=== PATIENT | female | born 1995 | race Caucasian/White ===

== ENCOUNTER → 2021-08-15 | Outpatient (CLI) | payer MEDICAID, SELFPAY ==
[2021-08-15 18:37] LABS: Amphetamine Urine VISTA NEGATIVE (<1000 ng/mL); Barbiturate Urine VISTA NEGATIVE (< 200 ng/mL); Benzodiazepine Urine VISTA NEGATIVE (< 200 ng/mL); Cocaine Urine VISTA NEGATIVE (< 300 ng/mL); Ecstacy Urine VISTA NEGATIVE (< 500 ng/mL); Methadone Urine VISTA NEGATIVE (< 300 ng/mL); PCP Urine VISTA NEGATIVE (< 25 ng/mL); THC Urine VISTA NEGATIVE (< 50 ng/mL); Vista UDS pH Range 6
[2021-08-19 09:19] LABS: Chlamydia By Nucleic Acid AMP Negative (Negative)
[2021-08-19 16:52] LABS: Gonococcus By Nucleic Acid AMP Negative (Negative)
[2021-08-21 18:27] LABS: HPV Reflexed? NOT INDICATED
== END | disposition home or self-care (01) ==
PROVIDERS: Referring Provider Obstetrics & Gynecology; Visit Provider Obstetrics & Gynecology
DX: O09.90 Supervision of high risk pregnancy, unspecified, unspecified trimester (principal); Z3A.00 Weeks of gestation of pregnancy not specified; Z12.4 Encounter for screening for malignant neoplasm of cervix
CPT/HCPCS: 80307; 87086; 87088; 87491; 87591; 88175; G0145

== ENCOUNTER → 2021-09-11 | Outpatient (CLI) | payer MEDICAID, SELFPAY ==
[2021-09-11 10:40] LABS: Absolute Lymphocyte Count 1.41 X10^3/uL (0.83-4.51); Absolute Neutrophil Count 7.8 X10^3/uL (2.0-7.7); Basophil# 0.04 X10^3/uL; Basophil% 0.4 % (0-1); Eosinophil# 0.08 X10^3/uL; Eosinophils% 0.8 % (0-5); Hematocrit 38.5 % (37-47); Hemoglobin 13.1 g/dL (12.0-15.0); Lymphocyte # 1.41 X10^3/ul (0.83-4.51); Lymphocyte % 13.6 % (19-41); Mean Corpuscular Hgb 28.4 pg (27.0-32.0); Mean Corpuscular Volume 83.5 fL (81-99); Mean Platelet Vol. 9.1 fl (6.2-12.0); Monocyte# 0.96 X10^3/uL; Monocyte% 9.3 % (0-10); NRBC Flagged by Analyzer 0 % (0-5); Neutrophil # 7.81 X10^3/uL (2.7-7.7); Neutrophil % 75.3 % (47-70); Platelet Count 266 K/mm3 (150-450); RBC Distribution Width CV 13.9 % (11.6-14.6); RBC Distribution Width SD 42.4 fl (35.1-43.9); Red Blood Count 4.61 M/mm3 (4.2-5.4); White Blood Count 10.4 K/mm3 (4.4-11.0)
[2021-09-11 11:33] LABS: NATERA MAILED SPECIMEN
[2021-09-11 13:03] LABS: HIV - WCH Non-Reactive (Nonreactive); Hepatitis B Surface Antigen Non-Reactive (Nonreactive); Hepatitis C Antibody Non-Reactive (Nonreactive); Rubella IgG Reactive (Nonreactive); Syphilis Antibodies Non-reactive
== END | disposition home or self-care (01) ==
LOC: PAVLAB 10:14
PROVIDERS: Obstetrics & Gynecology; Referring Provider Obstetrics & Gynecology; Visit Provider Obstetrics & Gynecology
DX: O09.90 Supervision of high risk pregnancy, unspecified, unspecified trimester (principal); Z3A.00 Weeks of gestation of pregnancy not specified
CPT/HCPCS: 36415; 85025; 86703; 86762; 86780; 86803; 86850; 86900; 86901; 87340

== ENCOUNTER 2022-01-23 08:00 | Outpatient (CLI) | payer MEDICAID, SELFPAY ==
[2022-01-23 08:15] VITALS: BP 130/85; PULSE 126; TEMP 37.4; O2SAT 100
[2022-01-23 08:19] VITALS: PULSE 112; O2SAT 100
[2022-01-23 08:24] VITALS: PULSE 115; O2SAT 99
[2022-01-23 08:48] VITALS: BMI 23.3
[2022-01-23 12:22] LABS: Absolute Lymphocyte Count 1.04 X10^3/uL (0.83-4.51); Absolute Neutrophil Count 10.1 X10^3/uL (2.0-7.7); Basophil# 0.03 X10^3/uL; Basophil% 0.2 % (0-1); Eosinophil# 0.04 X10^3/uL; Eosinophils% 0.3 % (0-5); Hematocrit 33.7 % (37-47); Hemoglobin 10.7 g/dL (12.0-15.0); Lymphocyte # 1.04 X10^3/ul (0.83-4.51); Lymphocyte % 8.6 % (19-41); Mean Corp Hgb Conc 31.8 g/dL (32-36); Mean Corpuscular Hgb 27.4 pg (27.0-32.0); Mean Corpuscular Volume 86.4 fL (81-99); Monocyte# 0.79 X10^3/uL; Monocyte% 6.5 % (0-10); NRBC Flagged by Analyzer 0 % (0-5); Neutrophil # 10.11 X10^3/uL (2.7-7.7); Neutrophil % 83.2 % (47-70); Platelet Count 297 K/mm3 (150-450); RBC Distribution Width CV 13.3 % (11.6-14.6); RBC Distribution Width SD 41.3 fl (35.1-43.9); White Blood Count 12.2 K/mm3 (4.4-11.0)
[2022-01-23 12:42] VITALS: BP 121/66; PULSE 92; O2SAT 100
[2022-01-23 13:41] LABS: Fibrinogen 371 mg/dl (203-444)
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
== END 2022-01-23 14:14 | disposition home or self-care (01) ==
LOC: WPOUT 08:03 → WP 08:04
PROVIDERS: Visit Provider Obstetrics & Gynecology
DX: Z04.1 Encounter for examination and observation following transport accident (principal); O47.9 False labor, unspecified; Z3A.00 Weeks of gestation of pregnancy not specified
CPT/HCPCS: 36415; 59025; 59050; 85025; 85384; 99218; G0378

== ENCOUNTER → 2022-03-12 | Outpatient (CLI) | payer MEDICAID, SELFPAY | END | disposition home or self-care (01) | LOC: LABSPEC 16:07 | PROVIDERS: Referring Provider Obstetrics & Gynecology; Visit Provider Obstetrics & Gynecology | DX: O09.90 Supervision of high risk pregnancy, unspecified, unspecified trimester (principal); Z3A.00 Weeks of gestation of pregnancy not specified | CPT/HCPCS: 87081 ==

== ENCOUNTER → 2022-03-13 | Outpatient (CLI) | payer MEDICAID, SELFPAY ==
--- NOTE | 2022-03-13 11:50 | US_ITS ---
STUDY: SECOND AND THIRD TRIMESTER OBSTETRICAL ULTRASOUND - LIMITED REASON FOR EXAM: Female, 26 years old. growth. LMP: July 03, 2021 PRIOR ULTRASOUND: None. TECHNIQUE: Transabdominal TECHNICAL QUALITY: Technically difficult due to body habitus to be performed with the patient on her side as she became syncopal while lying prone. FINDINGS: There is a single intrauterine fetus. The fetus is in a breech presentation. There is demonstrated cardiac activity with a heart rate of 145 bpm. There is a normal amniotic fluid volume. The largest amniotic fluid pocket measures 5.6 cm. The amniotic fluid index (SHERIN) is 15.9 cm. The placenta is anterior in location and is not low lying. There are Grade 3 placental changes. The cervix measures 3.7 cm in length. BIOMETRY: BPD: 8.9 cm: 36 weeks, 0 days HC: 32.9 cm: 37 weeks, 3 days AC: 32.18 cm: 36 weeks, 1 days FL: 6.94 cm: 35 weeks, 4 days Age by LMP: 36 weeks, 1 days. NAYAN by LMP: April 09, 2022. age by current US: 36 weeks, 3 days. NAYAN by current US: April 07, 2022. Estimated weight: 2844 grams, +/- 427 grams, 50 percentile. Gender: Indeterminant US/OB Limited With Biometrics IMPRESSION: 1. Live single intrauterine at 36 weeks, 3 days. NAYAN is April 07, 2022. 2. EFW of 2844 g. 3. SHERIN 15.9 cm. 4. Anterior grade 3 placenta. 5. Breech presentation. Electronically Signed: James Dee DO at 17:53 EST ,
== END | disposition home or self-care (01) ==
LOC: US 11:49
PROVIDERS: Referring Provider Obstetrics & Gynecology; Visit Provider Obstetrics & Gynecology
DX: O26.849 Uterine size-date discrepancy, unspecified trimester (principal); Z3A.00 Weeks of gestation of pregnancy not specified
CPT/HCPCS: 76816

== ENCOUNTER 2022-03-17 23:30 | Outpatient (CLI) | payer MEDICAID, SELFPAY ==
[2022-03-17 23:40] VITALS: BMI 24.4
[2022-03-17 23:48] VITALS: BP 122/83; PULSE 111; TEMP 36.2
[2022-03-17 23:49] VITALS: PULSE 104; O2SAT 100
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
[2022-03-18 00:23] LABS: ROM Internal Control Test YES-OK TO RESULT pt. (Internal QC); ROM Patient Test Negative (Negative)
== END 2022-03-18 00:57 | disposition home or self-care (01) ==
LOC: WPOUT 23:38 → WP 23:39
PROVIDERS: Visit Provider Obstetrics & Gynecology
DX: O47.1 False labor at or after 37 completed weeks of gestation (principal); O32.1XX0 Maternal care for breech presentation, not applicable or unspecified; Z3A.38 38 weeks gestation of pregnancy
CPT/HCPCS: 59025; 59050; 84112; 99221; G0378

== ENCOUNTER → 2022-03-18 | Outpatient (CLI) | payer MEDICAID, SELFPAY | END | disposition home or self-care (01) | LOC: LABSPEC 14:28 | PROVIDERS: Referring Provider Obstetrics & Gynecology; Visit Provider Obstetrics & Gynecology | DX: O26.899 Other specified pregnancy related conditions, unspecified trimester (principal); R30.0 Dysuria; Z3A.00 Weeks of gestation of pregnancy not specified | CPT/HCPCS: 87086 ==

== ENCOUNTER 2022-04-02 05:07 | Inpatient (IN) | payer MEDICAID, SELFPAY ==
[2022-04-02] VITALS (17 sets, daily range): BP systolic 105–126; BP diastolic 54–79; PULSE 90–120; RESP 14–21; TEMP 36.3–37.4; O2SAT 95–100; BMI 23.7
[2022-04-02] MEDS: Lactated Ringers 1,000 ML 999 ML IV (05:30)
[2022-04-02 05:48] LABS: Absolute Lymphocyte Count 1.85 X10^3/uL (0.83-4.51); Absolute Neutrophil Count 9.2 X10^3/uL (2.0-7.7); Basophil# 0.07 X10^3/uL; Basophil% 0.5 % (0-1); Eosinophil# 0.14 X10^3/uL; Eosinophils% 1.1 % (0-5); Hemoglobin 10.5 g/dL (12.0-15.0); Lymphocyte # 1.85 X10^3/ul (0.83-4.51); Lymphocyte % 14.4 % (19-41); Mean Corp Hgb Conc 31.8 g/dL (32-36); Mean Corpuscular Hgb 25.6 pg (27.0-32.0); Mean Corpuscular Volume 80.5 fL (81-99); Mean Platelet Vol. 8.9 fl (6.2-12.0); Monocyte# 1.26 X10^3/uL; Monocyte% 9.8 % (0-10); NRBC Flagged by Analyzer 0 % (0-5); Neutrophil # 9.18 X10^3/uL (2.7-7.7); Neutrophil % 71.2 % (47-70); Platelet Count 297 K/mm3 (150-450); RBC Distribution Width CV 14.6 % (11.6-14.6); RBC Distribution Width SD 42.3 fl (35.1-43.9); White Blood Count 12.9 K/mm3 (4.4-11.0)
[2022-04-02] MEDS: Lactated Ringers 1,000 ML 150 ML IV (06:34)
--- NOTE | 2022-04-02 07:12 | PCM.HP.OB ---
HPI - General General Date of Admission: 04/02/22 HPI Narrative TOMMY BAEZ, is a 26 y/o @ 39 weeks 0 days who presents to L&D for a primary section due to breech presentation. She was very hesitant to take any of the medications for surgery including bicitra, Tylenol, epidural/spinal medication, antibiotics and pitocin due to fear of an allergic reaction. She denies ever having a drug related allergic reaction ever but also declined her GCT during for the same fear. Eventually after explaining risks she agrees to the medications Maternal Data Information NAYAN Calculator Estimated Delivery Date Method Current WG Current Estimate 04/09/22 Ultrasound #1 39w 0d Other Estimates 03/24/22 LMP (Certain) 41w 2d PFSH PFSH Medical History (Updated 04/02/22 @ 05:27 by Smita Conley) Self-harm Allergy/AdvReac Type Severity Reaction Status Date / Time No Known Allergies Allergy Verified 03/27/22 15:51 Social History adopted: No household members: spouse housing: house current occupational status: employed current occupation: [employer] history of recent travel: No Smoking Status: Never smoker second hand exposure: No alcohol intake: former details: occasional before substance use type: does not use well-balanced diet: daily or most days caffeine: No during the past year weight has: remained stable what type of physical activity do you participate in: none frequency: does not exercise contreras/protestant: Baptism seatbelt use: always do you feel safe at home: Yes additional social history: BF/FOB is Camilo History 1 Elective abortions Hx Para 0 Spontaneous abortions Hx # Term Pregnancies Ectopic pregnancies Hx # Pregnancies Multiple births # of living children Visit Details Expected Delivery Route/Plan Labor Preferences- CB/BF classes: none labor support person: [] labor intervention preferences: [] pain management options preferred: [] cut cord/dad catch: [] : [] PP control planned: [] discussed possible routes of delivery and associated risks: [] special requests: [] Plans Covid status: discussed Flu vaccine: discussed Tdap vaccine: [] Rhogam: [] LARC form signed: [] Problem list reviewed and updated with the most current plan of care details and appropriate orders placed. Relevant counseling for the gestational age provided. Continue routine care and follow up unless otherwise noted in visit notes/problem list details OB Flowsheet Initial Weight: Not Recorded Date <del>?</del> EGA Weight BP Urine Prot <del>?</del> Glucose FHR FuHt Pres Dilation <del>?</del> Effaced St Visit Note 08/15/21 <del>?</del> 6w 1d 112 lb 4 oz 118/76 <del>?</del> 120 <del>?</del> JV- small yolk sac and barely visible pole with a flickering of heart beat measuring 120 bpm. possibly consistent with 6w1d. recommend repeat ultrasound in 2 weeks. 08/29/21 <del>?</del> 8w 1d 112 lb 6 oz 110/60 Negative <del>?</del> Negative 170 <del>?</del> SM- no vb cramping CRL 1.5 cm 09/22/21 <del>?</del> 11w 4d 116 lb 132/78 Negative <del>?</del> Negative 160 <del>?</del> SM- no vb cramping 09/23/21 <del>?</del> 11w 5d 116 lb 2 oz 116/72 Negative <del>?</del> Negative 170 <del>?</del> -work in. Hit large bump with car last night. Wants to confirm FHT. No spotting of bleeding. Bedside US confirm active live IUP with FHT 10/22/21 <del>?</del> 15w 6d 119 lb 122/74 Negative <del>?</del> Negative 168 <del>?</del> MH-NO VB, cramping. Anatomy US 11/13. Noted old scars inner left wrist. States long time ago. Denies feelings of self harm, feels well supported at this time. 11/17/21 <del>?</del> 19w 4d 128 lb 2 oz 116/72 Negative <del>?</del> Negative 158 20 <del>?</del> LC- feeling well. no concerns. had anatomy scan this morning. 12/15/21 <del>?</del> 23w 4d 132 lb 139/78 <del>?</del> 140 24 <del>?</del> SM- no vb lof good fm no regular ctx 01/14/22 <del>?</del> 27w 6d 139 lb 6 oz 139/81 Negative <del>?</del> Negative 135 28 <del>?</del> JV- pt to have gct by next visit. tdap info given. 01/28/22 <del>?</del> 29w 6d 133 lb 8 oz 132/74 Negative <del>?</del> Negative 146 27 <del>?</del> JV- pt states that she has a fear of anaphylaxis secondary to trying new foods or drinks which includes the glucola drink. She decided that she would take 2 bottles of the glucola with her and try just a capful of one and if no reaction for 24 hrs would drink a whole bottle and have the test. will need to call her in 2 days to make sure she did it. 02/13/22 <del>?</del> 32w 1d 136 lb 6 oz 135/81 Negative <del>?</del> Negative 140 32 <del>?</del> SM- no vb lof good fm no regular ctx SM- no vb lof good fm no regular ctx. declined BS testing with GCT, all testing WNL with home BS testing, 02/26/22 <del>?</del> 34w 0d 139 lb 8 oz 125/78 Negative <del>?</del> Negative 142 30 Transverse <del>?</del> JV- normal glucose levels at home. pt informed that baby will get frequent blood draws and monitoring since declined the gct. measuring small today. ordering growth scan. 03/12/22 <del>?</del> 36w 0d 143 lb 4 oz 121/87 Negative <del>?</del> Negative 122 35 Cephalic <del>?</del> JV- no lof, vaginal bleeding, or dec fm. no complaints. has ultrasound scheduled for tomorrow for growth. 03/18/22 <del>?</del> 36w 6d 142 lb 4 oz 133/88 Negative <del>?</del> Negative 145 36 Breech <del>?</del> JV- pt was on L&D last night for possible srom and was found to have a neg rom+ She denies further leaking but thinks the nurse scratched her urethra. She consents to an external exam only. no lacerations noted. baby is breech and she declines a version. She is very timid but asks if possible for a primary section regardless of the position. setting up primary section. risks discussed. 03/27/22 <del>?</del> 38w 1d 143 lb 3.2 oz 123/78 Negative <del>?</del> Negative 140 37 Breech <del>?</del> SM- no vb lof good fm no rgular ctx ROS Constitutional Constitutional: Denies change in weight, fatigue, fever(s), headache(s), poor appetite or weakness Eyes Eyes: Denies blurry vision, change in vision, seeing flashes or spots in vision ENT HEENT: Denies dizziness, headache(s), loss taste/smell or sore throat Cardiovascular Cardiovascular: Denies chest pain, dizziness, dyspnea, irregular heart rhythm, leg edema, palpitations, rapid heart rate or vomiting Respiratory/Chest Respiratory/Chest: Denies chest tightness, cough, dyspnea or breast pain Gastrointestinal Gastrointestinal: Denies abdominal pain, anorexia, constipation, cramping, diarrhea, hemorrhoids, vomiting or weight changes Genitourinary Genitourinary: Denies dysuria, flank pain, genital lesions, genital pain, urinary frequency or urinary urgency Musculoskeletal Musculoskeletal: Denies back pain, difficulty walking, joint pain, limited range of motion, muscle cramps or numbness Integumentary Integumentary: Denies lesions or unusual bruising Neurologic Neurologic: Denies abnormal movements, abnormal speech, dizziness, numbness, seizure-like activity or syncope Psychiatric Psychiatric: Denies anxiety, behavioral changes, change in appetite, change in libido, cognitive impairment, confusion, depression, difficulty concentrating, hallucinations or suicidal thoughts Endocrine Endocrinology: Denies excessive sweating, polydipsia or polyuria Hematologic/Lymphatic Hematologic/Lymphatic: Denies easy bleeding, easy bruising or lymphadenopathy Allergic/Immunologic Allergic/Immunologic: Denies itchy eyes, lip swelling, seasonal rhinorrhea, rhinitis, throat swelling, tongue swelling, eczemia, wheezing or asthma Vital Signs Vital Signs Vital Signs: 04/02/22 05:35 Temperature 97.4 F L Temperature Source Temporal Pulse Rate 120 H Respiratory Rate 16 Blood Pressure 119/79 Blood Pressure Mean 92 Blood Pressure Source Monitor Blood Pressure Position Semi-Fowlers Blood Pressure Location Right Arm Pulse Ox 98 Oxygen Delivery Method Room Air Weight Weight: 142 lb 9.6 oz Body Mass Index (BMI) 23.7 Physical Exam Const alert, oriented x3, no apparent distress and healthy appearing General Appearance: cooperative; Negative for anxious HEENT normocephalic Face and Sinus: normal facial exam Eyes EOMs intact bilaterally and no scleral icterus General Eye: normal appearance of both eyes Neck full ROM and supple Lymph Lymphatic: no lymphadenopathy noted Chest Chest: abnormal inspection of the chest Resp normal respiratory effort Effort and Inspection: able to speak in complete sentences Cardio regular rate GI soft to palpation and non-tender Inspection: gravid Palpation: soft; Negative for tender Back/Spine no CVA tenderness Extremity normal to inspection, full ROM and no clubbing, cyanosis or edema General Extremity: Negative for calf tenderness or edema Skin Lesions: no lesions Rashes: no rashes Psych mental status grossly normal Labs Labs Labs: Blood Type O POSITIVE Antibody Screen NEGATIVE Hct 33.0 % (37-47) L Hgb 10.5 g/dL (12.0-15.0) L Obstetrics US Syphilis Total Ab Non-reactive Rubella IgG Antibody Reactive (Nonreactive) Hep Bs Antigen Non-Reactive (Nonreactive) Chlamydia DNA (TARYN) Negative (Negative) Neisseria gonorrhoeae DNA (TARYN) Negative (Negative) HIV 1&2 Antibody Non-Reactive (Nonreactive) Assessment & Plan (1) : QUALIFIERS: Weeks of gestation: 38 weeks Qualified Code(s): Z3A.38 - 38 weeks gestation of COMMENT: GBS neg, anatomy nl, NIPT low risk (2) Supervision of high risk , antepartum: COMMENT: PRR , NAYAN 04/09/22 Boy, BF/FOB Camilo (3) LGSIL of cervix of undetermined significance: COMMENT: Repeat pap in 2022 (4) History of self-harm: COMMENT: scars inner left wrist/arm; Denies thoughts of self harm, depression. States well supported (5) Breech presentation: COMMENT: declines version. desires primary section regardless if baby flips. primary csection 04/02 @ 7:10 with JV (6) False labor before 37 completed weeks of gestation: PLAN: Plan plan for ERAS primary section now
[2022-04-02] MEDS: Sodium Citrate/Citric Acid 30 ML UDC PO (07:13)
[2022-04-02] MEDS: Cefazolin 2 GM in 0.9% Normal Saline 100 ML IV (07:17)
[2022-04-02] MEDS: Oxytocin 15 Units/NS 250ml 15 UNITS/250 ML IV.SOLN 83 UNITS IV (08:15)
--- NOTE | 2022-04-02 08:21 | OP.PCM_ITS ---
Assessment & Plan (1) : QUALIFIERS: Weeks of gestation: 38 weeks Qualified Code(s): Z3A.38 - 38 weeks gestation of COMMENT: GBS neg, anatomy nl, NIPT low risk (2) Supervision of high risk , antepartum: COMMENT: PRR , NAYAN 04/09/22 Boy, BF/FOB Camilo (3) LGSIL of cervix of undetermined significance: COMMENT: Repeat pap in 2022 (4) History of self-harm: COMMENT: scars inner left wrist/arm; Denies thoughts of self harm, depression. States well supported (5) Breech presentation: COMMENT: declines version. desires primary section regardless if baby flips. primary csection 04/02 @ 7:10 with JV (6) False labor before 37 completed weeks of gestation: Maternal Data Information NAYAN Calculator Estimated Delivery Date Method Current WG Current Estimate 04/09/22 Ultrasound #1 39w 0d Other Estimates 03/24/22 LMP (Certain) 41w 2d Final NAYAN: 04/09/22 Final NAYAN Source: US <20 weeks Gestational age: 39 weeks Details Operative Information Date of Procedure: 04/02/22 Pre-Operative Diagnosis: @ 39 weeks 0 days, breech presentation Post-Operative Diagnosis: @ 39 weeks 0 days, breech presentation Classification: Scheduled Procedure Type: low transverse inspector welded parts #1: Margie Zapata Type of Anesthesia: Spinal Antibiotic Given: Ancef 2 grams IV x1 Estimated Blood Loss: 300 Findings Description of Procedure: The patient is a 26y/o @ 39 weeks 0 days presented for primary . Spinal anesthesia was placed without difficulty. Boateng catheter was placed. The patient was placed in the dorsal supine position with leftward tilt. Patient was prepped and draped in the normal sterile fashion. Pfannenstiel skin incision was made with the scalpel and carried through to the underlying layer of fascia with the scalpel. Fascia was nicked in the midline and the incision extended laterally. The rectus bellies were dissected off superiorly and inferiorly with out complication both sharply and bluntly. The peritoneum was entered digitally. The incision was stretched and a low transverse uterine incision was made with the scalpel. The infant's head was delivered atraumatically followed by the anterior and posterior shoulders without complication the rest of the infant delivered. The cord was clamped and cut and the infant was handed off to awaiting nurse. The placenta was delivered spontaneously immediately following and was noted to be intact and have a three- vessel cord. The uterus was exteriorized cleared of all clots and debris, and the incision was closed in a single layer closure using #1 Vicryl. The ovaries and fallopian tubes were noted to be within normal limits. The uterus was returned to the maternal abdomen and gutters were cleared of all clots and debris. The peritoneum was closed with 3-0 Monocryl in a running fashion. G loves were changed prior to fascial closure. Fascia was closed with 0 PDS in a running fashion. Subcutaneous tissue was copiously irrigated and the skin was closed with 3-0 Monocryl in a subcuticular fashion. Mepilex dressing was applied without complication. Patient was taken to recovery in stable condition. It was discussed with the patient that based on the clinical information obtained d uring this encounter, combined with her history, at this time I would recommend either repeat section or for future deliveries if further pregnancies are desired. baby boy Ramiro weight 7 lbs 9 oz Presentation: Positive for Vertex and Sameer Breech Amniotic Fluid Description: Clear Cord Vessel Description: 3 Vessels Cord Entanglement: None Infant A Gender: Male (1 minute): 8 (5 minute): 9 Delayed Cord Clamping: Yes Complications Risks of Surgery Discussed w/Patient: Bleeding, Anesthesia Risks, Infection, Need for Future C-Sections and Injury to surrounding structure(s) including bowel and bladder Multi Select Codes Urinary/Genital Urinary/Genital CPT Codes: 92417 delivery+ Care([facility])
[2022-04-02] MEDS: Lactated Ringers 1,000 ML 100 ML IV (11:38)
--- NOTE | 2022-04-02 18:45 | NURSING ---
1830: pt continually refusing to take pain medication throughout the day due to deep fear of allergic reaction. Nurse has reiterated throughout the day the benefits of pain medication like Motrin and Tylenol. Patient and family states that patient has taken liquid Tylenol and Motrin throughout her entire life with no reaction. Patient is tearful and moaning in pain but still denies taking anything to help. Pt has heating pad for comfort, given cool washcloth. Encourage other coping mechanisms like music and low lighting. Pt unwilling to verbalize where fear of allergic reaction originates with the response of I don't know. Placing social service consult for further evaluation.
--- NOTE | 2022-04-02 19:37 | NURSING ---
dr grier notified of pts refusal to take any pain medications
[2022-04-03] VITALS: BP 102/54; PULSE 82; RESP 16; TEMP 36.9; O2SAT 96
[2022-04-03] MEDS: Ibuprofen 100 MG/5 ML UDC 600 MG PO ×4 (01:28→20:05)
[2022-04-03 03:34] VITALS: BP 114/70; PULSE 87; RESP 16; TEMP 36.6; O2SAT 96
[2022-04-03 05:54] LABS: Hematocrit 26.9 % (37-47); Hemoglobin 8.4 g/dL (12.0-15.0); Mean Corp Hgb Conc 31.2 g/dL (32-36); Mean Corpuscular Hgb 25.4 pg (27.0-32.0); Mean Corpuscular Volume 81.3 fL (81-99); Mean Platelet Vol. 9.2 fl (6.2-12.0); Platelet Count 267 K/mm3 (150-450); RBC Distribution Width CV 15.1 % (11.6-14.6); RBC Distribution Width SD 44.2 fl (35.1-43.9); Red Blood Count 3.31 M/mm3 (4.2-5.4); White Blood Count 16.7 K/mm3 (4.4-11.0)
[2022-04-03 07:50] VITALS: BP 115/72; PULSE 87; RESP 16; TEMP 36.6
--- NOTE | 2022-04-03 08:03 | PCM.PN.OB ---
Subjective Subjective Patient is laying in bed comfortably without complaints. She states that she slept on an off during the night. Lochia is mild and pain is minimal. Objective Data Objective Data Vital Signs: Vital Signs Temp Pulse Resp BP Pulse Ox O2 Del Method 97.8 F 87 16 114/70 96 Room Air 04/03/22 03:34 04/03/22 03:34 04/03/22 03:34 04/03/22 03:34 04/03/22 03:34 04/03/22 03:34 Oxygen Delivery Method Room Air Weight: 142 lb 9.6 oz Body Mass Index (BMI) 23.7 Intake & Output: Intake and Output for Last 24 Hours 04/01/22 04/02/22 04/03/22 23:59 23:59 23:59 Intake Total 1895.83 / 1895.83 Output Total 1550 / 1550 800 / 800 Balance 345.83 / 345.83 -800 / -800 Lab / Micro Data Result Diagrams: 04/03/22 05:45 Labs: Laboratory Results - last 24 hr 04/03/22 05:45: WBC 16.7 H, RBC 3.31 L, Hgb 8.4 L, Hct 26.9 L, MCV 81.3, MCH 25.4 L, MCHC 31.2 L, RDW Std Deviation 44.2 H, RDW Coeff of Shashank 15.1 H, Plt Count 267, MPV 9.2 ROS Constitutional Constitutional: Reports systems reviewed and no addt'l complaints, except as documented Cardiovascular Cardiovascular: Denies chest pain, dizziness, dyspnea or irregular heart rhythm Respiratory/Chest Respiratory/Chest: Denies cough, pain on inspiration or shortness of breath at rest Gastrointestinal Gastrointestinal: Denies abdominal pain, nausea or vomiting Genitourinary Genitourinary: Denies burning urination Musculoskeletal Musculoskeletal: Denies muscle cramps, muscle spasms or muscle weakness Neurologic Neurologic: Denies confusion, dizziness, headache(s) or lack of coordination Psychiatric Psychiatric: Denies anxiety, behavioral changes or depression Physical Exam HEENT normocephalic Resp normal respiratory effort and normal air movement GI soft to palpation, non-tender and non-distended Rectal Exam: other Other Details: Incision is clean, dry, and intact no CVA tenderness Extremity normal to inspection General Extremity: edema bilateral (trace ) Assessment & Plan (1) Status post section: PLAN: s/p LTCS PPD # 1 1. routine post care 2. breast feeding- support given 3. rh positive 4. rubella immune 5. h/o self harm - social work consulted. pt denies si/hi. (2) Breech presentation: COMMENT: declines version. desires primary section regardless if baby flips. primary csection 04/02 @ 7:10 with JV (3) History of self-harm: COMMENT: scars inner left wrist/arm; Denies thoughts of self harm, depression. States well supported (4) LGSIL of cervix of undetermined significance: COMMENT: Repeat pap in 2022 (5) Supervision of high risk , antepartum: COMMENT: PRR , NAYAN 04/09/22 Boy, BF/FOB Camilo
--- NOTE | 2022-04-03 12:06 | NURSING ---
pt is very quiet and is weepy at times, waving her hands and looking at them. She smiles occasionally at me and answers me very briefly. Often she looks at her mom for answers or her mom answers for her. Pt has been encouraged in babycare and has breastfed successfully but has otherwise not been seen holding the baby or changing diapers. She agreed to take liquid motrin this morning but refuses tylenol or oxy.
[2022-04-03 14:23] VITALS: BP 105/66; PULSE 85; RESP 16; TEMP 36.6
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
--- NOTE | 2022-04-03 18:47 | NURSING ---
nurse into talk to patient about not wanting to admit she is having pain. nurse explained that she had a major surgery that is painful and at least for a short time will need to take some kind of pain medication. encouraged her to not have the fear of a reaction of medication. told her you are in the right place if you are going to react to it I also explained to her and mom about trying to take pill form of medication (tylenol and motrin) in applesauce if unsure of being able to swollen them. Pt agreed to try. she is aware she will be doing more once she id discharged home and needs to be up and moving here in the hospital. she also agreed. therefore once her oxy kicks in she has agreed to get up and walk. talked to her about a binder that may be used as well.
--- NOTE | 2022-04-03 18:57 | NURSING ---
pt told ETHAN Ramos her pain level is a 10; Rachel reasoned with her about pain meds, Marlon Hickey RN also talked at length with her about taking pain meds to prevent post op complications and to make is so she can get around better and take care of the baby. She agreed to take pain meds in applesauce. Meds taken to room but when placed in applesauce she said, I can't take them, I don't want them. I asked her mom if she knew how to help Elisha and she shook her head. Marlon Hickey RN called to the room but also unable to get pt to take oxy and Tylenol. Pt refuses to get out of bed except to go to bathroom and refuses to hold or care for baby unless she is , which is still going well.
[2022-04-03 20:23] VITALS: BP 124/64; PULSE 93; RESP 17; TEMP 36.5
--- NOTE | 2022-04-03 21:01 | NURSING ---
At 2034, pt mother called this RN into room so I could weigh and change bed sheets. Pt was up to bathroom and when she came out, this RN asked if pt felt up to walking in the hallway with RN and in crib just outside room. Pt agreed and we put on an abdominal binder. When putting on binder, this RN could tell pt was quite painful but she stated the liquid motrin helped her 5/10 pain from aroundd 1999. Pt let this RN put on binder and then we walked a few minutes in the hallway before pt going back into room and getting back in bed.
[2022-04-04 02:10] VITALS: BP 104/50; PULSE 85; RESP 16; TEMP 36.7
[2022-04-04] MEDS: Ibuprofen 100 MG/5 ML UDC 600 MG PO ×2 (02:16→08:44)
[2022-04-04 08:20] VITALS: BP 102/56; PULSE 81; RESP 18; TEMP 36.6; O2SAT 97
--- NOTE | 2022-04-04 09:05 | DS.PCM_ITS ---
Providers Date of Admission: 04/02/22 Primary Care Physician: No Primary Care Phys Reason For Visit: PRIMARY C SECTION,CSECTION DELIVERY Diagnosis Discharge Diagnosis (1) Status post section: Status: Acute Code(s): Z98.891 - History of uterine scar from previous surgery Plan: s/p LTCS PPD # 1 1. routine post care 2. breast feeding- support given 3. rh positive 4. rubella immune 5. h/o self harm - social work consulted. pt denies si/hi. (2) Breech presentation: Status: Acute Code(s): O32.1XX0 - Maternal care for breech presentation, not applicable or unspecified (3) History of self-harm: Status: Acute (4) LGSIL of cervix of undetermined significance: Status: Acute Code(s): R87.612 - Low grade squamous intraepithelial lesion on cytologic smear of cervix (LGSIL) (5) Supervision of high risk , antepartum: Status: Acute Code(s): O09.90 - Supervision of high risk , unspecified, unspecified trimester Hospital Course Operations None and section Summary of Care Provided Minutes Spent on Discharge: 30 Hospital Course: The patient was admitted for a primary section on04/02/22 due to breech presentation. There were no complications. On day #1 she was tolerating pain well and ambulating, on day #2 she was ready for discharge. Physical Exam HEENT normocephalic Resp normal respiratory effort and normal air movement GI soft to palpation, non-tender and non-distended Rectal Exam: other Other Details: Incision is clean, dry, and intact no CVA tenderness Extremity normal to inspection General Extremity: edema bilateral (trace ) Weight / BMI Weight Weight: 142 lb 9.6 oz Body Mass Index (BMI) 23.7 ABG / Lab / Microbiology Data Result Diagrams: 04/03/22 05:45 D/C Instructions Discharge Diet: No restrictions May resume sexual activity in: 4-6 weeks Weight Bearing Status: Full weight bearing Call your doctor if your incision/area has: Continuous Slow Oozing, Sudden Increased Bleeding, Increased Pain/ Swelling, Increased Redness and Foul Smell ing Discharge Call your doctor if you observe: Fever of 101 or Higher and Using more than 1 pad per hour Suture Line Care: Avoid Pulling/Pushing and Avoid Pinching/Bending Cleanse incision/area with: Soap & Water and Keep Dressing Clean & Dry Please Follow Up With: Mirta Stiles, DO When: Call [phone] to make an appointment for an incision check in 1-2 weeks. Meaningful Use Info Meaningful Use Diagnoses (Choose all that apply): None applicable Discharge Plan Admission Admit Date/Time: 04/02/22 05:07 Attending Provider: Mirta Stiles Primary Care Provider: Care Physician,Yohana Primary Discharge Orders/Prescriptions Referrals / Follow Up: Care Physician,No Primary [Primary Care Provider] -
--- NOTE | 2022-04-04 09:06 | DCINST_ITS ---
Discharge Instructions Diet Discharge Diet: No restrictions Activity Discharge Activity: May Not Drive (for 2 weeks or while taking narcotic pain medications.), May Shower and May Take a Tub Bath (in 7 days.) May resume sexual activity in: 4-6 weeks Weight Bearing Status: Full weight bearing Lifting Restrictions: 20 pounds Dressing / Incision Call your doctor if your incision/area has: Continuous Slow Oozing, Sudden Increased Bleeding, Increased Pain/ Swelling, Increased Redness and Foul Smelling Discharge Call your doctor if you observe: Fever of 101 or Higher and Using more than 1 pad per hour Suture Line Care: Avoid Pulling/Pushing and Avoid Pinching/Bending Cleanse incision/area with: Soap & Water and Keep Dressing Clean & Dry Follow Up Care Please Follow Up With: Mrita Stiles DO When: Call [phone] to make an appointment for an incision check in 1-2 weeks. Test Results: Test results from this visit will be discussed in further detail at your follow- up appointment, if applicable. Discharge Plan Admission Admit Date/Time: 04/02/22 05:07 Primary Reason for Your Visit: section Attending Provider: Mirta Stiles Primary Care Provider: Reyna Physician,Yohana Primary Instructions Patient Instructions: After a Discharge Orders/Prescriptions Prescriptions: New ibuprofen [Children's Ibuprofen] 100 mg/5 mL Suspension 600 mg PO Q6H Qty: 473 0RF Referrals / Follow Up: Care Physician,No Primary [Primary Care Provider] - Disposition Disposition (needs filled in before D/C Order can be placed): Home, Self Care
[2022-04-04 14:03] VITALS: BP 105/56; PULSE 82; RESP 16; TEMP 36.6; O2SAT 96
--- NOTE | 2022-04-11 10:47 | CASEMGMT ---
Social Work Labor and Delivery unit Help me grow referral submitted through the [facility] assisted care web-based referral system. Faxed [facility] and referral form [phone]. No other services requested or indicated. -PILAR Taylor, PIPE ROLLER. *This note was generated with [employer] dictation software. It may contain incorrect words, spelling, and punctuation that were not noted in review of the chart prior to signing*
== END 2022-04-04 14:09 | disposition home or self-care (01) | DRG 540 ==
PROVIDERS: Admitting Provider Obstetrics & Gynecology; Visit Provider Obstetrics & Gynecology
PROC: 10D00Z1 Extraction of Products of Conception, Low, Open Approach (ICD-10-PCS; CPT 59514; principal; 2022-04-02 06:55)
DX: O32.1XX0 Maternal care for breech presentation, not applicable or unspecified (principal); O99.892 Other specified diseases and conditions complicating childbirth; Z37.0 Single live birth; Z3A.39 39 weeks gestation of pregnancy; Z91.52 Personal history of nonsuicidal self-harm; R87.612 Low grade squamous intraepithelial lesion on cytologic smear of cervix (LGSIL)
CPT/HCPCS: 59050; 85025; 85027; 86850; 86900; 86901; 99221; J7120; G0378; J2405

== ENCOUNTER 2022-04-06 20:27 | Emergency (ER) | payer MEDICAID, SELFPAY ==
[2022-04-06 20:27] VITALS: BP 152/98; PULSE 114; RESP 18; TEMP 36.2; O2SAT 100; BMI 23.3
--- NOTE | 2022-04-06 21:33 | ED.VIS.FEGU ---
HPI HPI - Female History of Present Illness Chief Complaint: Vag Bleeding Detail of Chief Complaint: Complaining of discomfort at the incision site. Recent . Informant: patient Pain Pain: Positive for Pelvic Pain Current Severity: Mild Maximum Severity: Mild Bleeding Issue: Positive for Vaginal bleeding Onset: Days Context: Gradual Onset Timing: Intermittent Current Severity: Mild Maximum Severity: Mild Associated Symptoms Associated Symptoms: Positive for Hematuria; Negative for Dysuria, Frequency or Urgency P: 1 Ab: 0 Narrative Narrative: 26-year-old female, Ab0. Status post 04/02/[address] Rivers for breech delivery at 39 weeks. Patient had no complications otherwise. She is just complaining of some intermittent vaginal bleeding. No clots. Not heavy. Intermittent. And discomfort at the incision site. Also gross hematuria. She had no problems during the with her blood pressure or preeclampsia. Prior similar symptoms: No Recent Illness/Hospitalization: Yes PFSH PFSH Medical History Self-harm Home Medications ibuprofen 100 mg/5 mL oral suspension (Children's Ibuprofen) 600 mg (30 mL) PO Q6H #473 mL 04/04/22 [Rx Last Taken Unknown] Allergy/AdvReac Type Severity Reaction Status Date / Time No Known Allergies Allergy Verified 03/27/22 15:51 Social History adopted: No household members: spouse housing: house current occupational status: employed current occupation: [employer] history of recent travel: No Smoking Status: Never smoker second hand exposure: No alcohol intake: former details: occasional before substance use type: does not use well-balanced diet: daily or most days caffeine: No during the past year weight has: remained stable what type of physical activity do you participate in: none frequency: does not exercise contreras/mu-ism: Sabianist seatbelt use: always do you feel safe at home: Yes additional social history: BF/FOB is Camilo JOHNSON ROS ED ROS Narrative Denies recent illness. Review of Systems ROS Unobtainable: Denies due to encephalopathy Constitutional Constitutional ED: Denies chills or fever(s) Eyes Eyes: Denies blurry vision Cardiovascular Cardiovascular: Denies chest pain Respiratory/Chest Respiratory/Chest: Denies cough or dyspnea Gastrointestinal Gastrointestinal: Denies abdominal pain Genitourinary Genitourinary ED: Reports hematuria; Denies dysuria Musculoskeletal Musculoskeletal: Denies arthralgias or myalgias Integumentary Denies abscess Neurologic Neurologic: Denies headache(s) Psychiatric Psychiatric: Denies anxiety Endocrine Endocrinology: Denies heat intolerance Hematologic/Lymphatic Hematologic/Lymphatic: Denies easy bleeding Allergic/Immunologic Allergic/Immunologic ED: Denies mouth swelling or tongue swelling EXAM Physical Exam Narrative Exam Narrative: 27-year-old female no acute distress vital signs stable and pressures elevated 152/98 and her pulse is 114. Pulse ox 100% on room air no signs hypoxia. She seems anxious. Vital signs to be rechecked. H EENT exam unremarkable. Neck nontender. Lungs clear to auscultation bilaterally. Heart regular rhythm no murmur. Rate about 110. Abdomen soft nondistended normal bowel sounds no peritoneal signs. She has a very well-healing Pfannenstiel surgical incision from her . There is no signs of infection. No redness or pus. No significant swelling and no active bleeding. Moving all 4 extremities. Nontender without edema. Neurologically she is awake and alert with no focal motor deficits. Const Vital Signs: 04/06/22 20:27 04/06/22 23:38 Temperature 97.1 F L Temperature Source Temporal Pulse Rate 114 H Respiratory Rate 18 Blood Pressure 152/98 H 112/56 L Blood Pressure Mean 116 74 Pulse Ox 100 Oxygen Delivery Method Room Air Positive well nourished and well developed; Negative for obese, cachectic or contractures General Appearance ED: well developed and NAD; Negative for cachectic, contractures or pallor Nutritional Appearance: Negative for cachectic or obese HEENT Reports moist mucous membranes Negative for trauma or tenderness Eyes PERRL and EOMs intact bilaterally General Eye ED: Negative for pale conjunctiva or scleral icterus Neck no lymphadenopathy, supple and no JVD General: Negative for other Thyroid: Negative for tender Chest Wall inspection of chest normal and palpation of chest normal Chest: Negative for other Resp normal respiratory effort and clear to auscultation bilaterally Effort and Inspection: Negative for pain with movement Auscultation: Negative for rales or rhonchi Cardio regular rhythm, S1 normal heart sound, no murmurs and no JVD; Negative for regular rate Rate: tachycardic GI normal to inspection, nondistended, normoactive bowel sounds, soft to palpation, non-tender, non-distended and no masses GI Narrative: Well-healing Fenistil horizontal incision for . Clean and dry. No signs of infection. No bleeding. Only mildly tender at wound site. Auscultation: normoactive bowel sounds Back/Spine no CVA tenderness General Back: Negative for CVA tenderness Cervical Spine: Negative for cervical spine tenderness Thoracic Spine / Upper Back: Negative for thoracic spinal tenderness Lumbar Spine / Lower Back: Negative for lumbar spinal tenderness Sacrum: Negative for other Extremity normal to inspection and full ROM General Extremety ED: Negative for edema General Extremity: Negative for edema Neuro oriented x3 Sensorium / Orientation: alert, oriented to person, oriented to place and oriented to time; Negative for confused, lethargic or stuporous Psych mental status grossly normal Attitude: No agitated Speech: No other Mood & Affect: Negative for depressed, anxious or tearful Skin no rashes or lesions noted and no wounds General Skin Exam: Negative for jaundice or pallor Rashes: No rashes noted Trauma: Negative for other MDM MDM MDM Narrative Medical decision making narrative: 26-year-old status post with vaginal bleeding and hematuria. Wound site looks clean and dry. Her initial pressure was elevated 152/98 and may be secondary to anxiety and pain. She had no issues with hypertension or preeclampsia during the . Vital signs to be rechecked. We will obtain a urinalysis and a pelvic exam. Repeat exam patient is doing well at 11:40 PM. They get a repeat blood pressure for me it was 112/56. I think this patient is very anxious this was her first and she did not know what to expect. Myself and a female nurse went into the room to do a pelvic exam to see the extent of her bleeding which does not sound severe. And she just did not want us to do it. She said she had discomfort from the incision and did not want a pelvic exam done. She has had no heavy bleeding while she has been here. Family with her. Patient is doing well she will be discharged home with outpatient follow-up with her COMPUTER TYPESETTER KEYLINER she is scheduled appointment for next week. Lab Data Attestation: I reviewed the patient's lab results. Lab results narrative: Urine was a contaminated specimen. Had blood on both microscopic and macroscopic. 10-25 red cells. There were 25-50 white cells that was contaminated with 10-25 epithelial cells. No bacteria. This will not be treated as a UTI. Not sending a culture she does not have urinary symptoms just blood. Labs: Laboratory Results - last 24 hr 04/06/22 21:45 Urine Color Lisa Urine Clarity Sl. Cloudy Urine pH 6.0 Ur Specific [place] 1.020 Urine Protein 100 H Urine Glucose (UA) Normal Urine Ketones 5 H Urine Occult Blood 250 H Urine Nitrite Negative Urine Bilirubin Negative Urine Urobilinogen 8 H Ur Leukocyte Esterase 500 H Urine RBC 10-25 SEEN Urine WBC 25-50 SEEN Ur Squamous Epith Cells 10-25 SEEN Urine Bacteria 0 SEEN Urine Mucus 2+ Discharge Plan Triage Chief Complaint: Vag Bleeding ED Provider: Khanh Cabrera Dx/Rx/DC Orders Clinical Impression: Vaginal bleeding, History of Prescriptions: No Action ibuprofen [Children's Ibuprofen] 100 mg/5 mL Suspension 600 mg PO Q6H Qty: 473 0RF Primary Care Provider: Care Physician,No Primary Referrals: Mirta Stiles DO [Med Staff - Active Staff] - As soon as possible Care Physician,No Primary [Primary Care Provider] - Activity Restrictions/Additional Instructions: Sees section incision looks good. Motrin and Tylenol for pain. You may have some intermittent bleeding that should resolve in the next several days. Return if heavy bleeding or large clots, fever or you are feeling worse. Otherwise follow-up with your COMPUTER TYPESETTER KEYLINER. This appears to be a normal postoperative course after a . Disposition Disposition: Home, Self Care
[2022-04-06 21:54] LABS: Bacteria 0 SEEN /hpf (None Seen)
[2022-04-06 22:07] LABS: Color, Urine Amber (Yellow); Glucose, Dipstick Normal (Normal); Ketone-Dipstick 5 mg/dl (Negative); Leukocyte Esterase-Dipstick 500 /ul (Negative); Nitrite-Dipstick Negative (Negative); Occult Blood-Urine 250 /ul (Negative); Protein-Dipstick 100 mg/dl (Negative); Urine Bilirubin Dipstick Negative (Negative); Urine Clarity Sl. Cloudy (Clear); Urine Urobilinogen 8 mg/dl (Normal)
[2022-04-06 22:14] LABS: Red Blood Cells-Urine 10-25 SEEN /hpf (0-5); White Blood Cells 25-50 SEEN /hpf (0-5)
[2022-04-06 22:15] LABS: Mucous, Urine 2+ /hpf (<or=2+); Squamous Epithelial Cells - UA 10-25 SEEN /hpf (5-10)
[2022-04-06 23:38] VITALS: BP 112/56
[2022-04-07 00:01] VITALS: BP 112/56; PULSE 90; RESP 16
== END 2022-04-07 00:02 | disposition home or self-care (01) ==
PROVIDERS: Emergency Provider Emergency Medicine; Visit Provider Emergency Medicine
DX: N93.9 Abnormal uterine and vaginal bleeding, unspecified (principal)
CPT/HCPCS: 81001; 99282

== ENCOUNTER 2022-04-08 09:53 | Emergency (ER) | payer MEDICAID, SELFPAY ==
[2022-04-08 09:54] VITALS: BP 148/95; PULSE 140; RESP 18; TEMP 36.6; O2SAT 100
[2022-04-08 09:56] VITALS: BMI 24.2
--- NOTE | 2022-04-08 09:57 | ED.RN ---
CALLED AND SPOKE WITH OB BOILING HOUSE HAND. PATIENT TO BE SEEN IN ED.
[2022-04-08] MEDS: 0.9% Normal Saline 1,000 ML 999 ML IV (10:35)
[2022-04-08 10:36] VITALS: BP 127/71; BP 132/80; BP 132/86; PULSE 120; PULSE 98
[2022-04-08 10:37] VITALS: PULSE 81
[2022-04-08 10:38] LABS: Absolute Lymphocyte Count 1.02 X10^3/uL (0.83-4.51); Absolute Neutrophil Count 8.8 X10^3/uL (2.0-7.7); Basophil# 0.05 X10^3/uL; Basophil% 0.5 % (0-1); Eosinophil# 0.13 X10^3/uL; Eosinophils% 1.2 % (0-5); Hematocrit 33.6 % (37-47); Hemoglobin 10.2 g/dL (12.0-15.0); Lymphocyte # 1.02 X10^3/ul (0.83-4.51); Lymphocyte % 9.4 % (19-41); Mean Corp Hgb Conc 30.4 g/dL (32-36); Mean Corpuscular Volume 82.4 fL (81-99); Mean Platelet Vol. 8.5 fl (6.2-12.0); Monocyte# 0.53 X10^3/uL; Monocyte% 4.9 % (0-10); NRBC Flagged by Analyzer 0 % (0-5); Neutrophil # 8.81 X10^3/uL (2.7-7.7); Neutrophil % 80.9 % (47-70); Platelet Count 451 K/mm3 (150-450); RBC Distribution Width SD 44.6 fl (35.1-43.9); Red Blood Count 4.08 M/mm3 (4.2-5.4); White Blood Count 10.9 K/mm3 (4.4-11.0)
--- NOTE | 2022-04-08 10:46 | EDS_ITS ---
HPI HPI - Female History of Present Illness Chief Complaint: Vag Bleeding Narrative Narrative: 26-year-old female presenting with vaginal bleeding. She is G1, P1, A0 she had a done 04/02/[address] Rivers at 39 weeks secondary to breech presentation. Patient has had some incision sites pains which have not increased but are not getting better. She is also noted she had vaginal bleeding for the whole time. She states she was initially spotting. Today she woke up with a lot of blood in her underwear and noticed a large clot. She states she called the [facility] and they told her to go to the emergency room. Patient denies any lightheadedness, dizziness, shortness of breath. She states that I do not want to bleed to . She states he is changing her pad 4 times a day. No fevers or chills. She does admit to some new lumbar back pain in the left lower lumbar region. No loss of bladder or bowel control or saddle anesthesia paresthesia. No urinary tension PFSH PFSH Medical History Self-harm Home Medications ibuprofen 100 mg/5 mL oral suspension (Children's Ibuprofen) 600 mg (30 mL) PO Q6H #473 mL 04/04/22 [Rx Last Taken Unknown] potassium chloride 40 mEq/15 mL oral liquid 20 meq (7.5 mL) PO DAILY 1 day #7.5 mL 04/08/22 [Rx Last Taken Unknown] Allergy/AdvReac Type Severity Reaction Status Date / Time No Known Allergies Allergy Verified 04/08/22 09:56 Social History adopted: No household members: spouse housing: house current occupational status: employed current occupation: [employer] history of recent travel: No Smoking Status: Never smoker second hand exposure: No alcohol intake: former details: occasional before substance use type: does not use well-balanced diet: daily or most days caffeine: No during the past year weight has: remained stable what type of physical activity do you participate in: none frequency: does not exercise contreras/sabianist: Syn[employer] seatbelt use: always do you feel safe at home: Yes additional social history: BF/FOB is [facility] ROS ED Constitutional Constitutional ED: Denies chills, fever(s) or sweats Eyes Eyes: Denies blurry vision or change in vision ENT ENT ED: Denies ear pain or sore throat Cardiovascular Cardiovascular: Denies chest pain, palpitations or racing heartbeat Respiratory/Chest Respiratory/Chest: Denies cough, dyspnea or sputum Gastrointestinal Gastrointestinal: Reports abdominal pain; Denies constipation, diarrhea, nausea or vomiting Genitourinary Genitourinary ED: Reports other Details: Vaginal bleeding ; Denies dysuria, hematuria or urinary frequency Musculoskeletal Musculoskeletal: Denies arthralgias, myalgias or neck pain Integumentary Denies abscess, Abrasions or rash Neurologic Neurologic: Denies headache(s), paresthesias or weakness Psychiatric Psychiatric: Denies anxiety, depression, suicidal ideation or suicidal thoughts Endocrine Endocrinology: Denies polydipsia or polyuria EXAM Physical Exam Const Vital Signs: 04/08/22 09:54 04/08/22 10:36 04/08/22 10:37 Temperature 97.9 F Temperature Source Temporal Pulse Rate 140 H 81 Pulse Rate [Sitting (for 1 minute prior to obtaining)] 98 Pulse Rate [Standing (for 1 minute prior to obtaining)] 120 H Respiratory Rate 18 Blood Pressure 148/95 H Blood Pressure [Lying] 127/71 H Blood Pressure [Sitting (for 1 minute prior to obtaining)] 132/80 H Blood Pressure [Standing (for 1 minute prior to obtaining)] 132/86 H Blood Pressure Mean 112 Blood Pressure Mean [Lying] 89 Blood Pressure Mean [Sitting (for 1 minute prior to obtaining)] 97 Blood Pressure Mean [Standing (for 1 minute prior to obtaining)] 101 Pulse Ox 100 Oxygen Delivery Method Room Air Positive well nourished HEENT Reports TM's clear and moist mucous membranes Negative for trauma Tympanic Membrane ED: Yes TM's clear Eyes PERRL and EOMs intact bilaterally General Eye ED: Negative for pale conjunctiva or scleral icterus Chest Wall inspection of chest normal and palpation of chest normal Resp normal respiratory effort and clear to auscultation bilaterally Cardio regular rhythm Rate: tachycardic GI normal to inspection, nondistended, normoactive bowel sounds Back/Spine no CVA tenderness Neuro oriented x3 and CN's II-XII intact bilaterally Sensorium / Orientation: alert Motor Exam: strength 5/5 throughout Psych Mood & Affect: anxious Skin no rashes or lesions noted MDM MDM MDM Narrative Medical decision making narrative: Patient presenting with vaginal spotting. She noticed a large amount of blood in her underwear this morning with a large clot. Patient is not lightheaded or dizzy. She is not complaining of any worsening pain in her abdomen. She states the incisional sites of hurt but not any worse or better. She does have some left lumbar paraspinal muscular tenderness today. She denies any trauma. No fevers or chills. No nausea or vomiting. Initial heart rate was 140 which is concerning for possible blood loss anemia. Orthostatics were obtained and were normal. She is not tachycardic on her orthostatics. CBC was obtained to assess for anemia and her hemoglobin is actually up to 10.2 from 8.4 on the . CMP shows normal renal function. Potassium slightly low at 3.0. She was given 40 mill equivalents here in the ED. She will be given 40 mill equivalents p.o. x1 dose. Discussed with Dr. Rivers. She had low suspicion for retained products as the patient had a and she states that she cleaned her thoroughly. She did not believe that she needed an ultrasound. She recommended reassurance. If patient CMP is normal I will have her discharged home to follow-up with Dr. Rivers next week. Dr. Rivers states that she will make this appointment and reach out to the patient to set up. Impression: 1. vaginal bleeding 2. Hypokalemia Lab Data Attestation: I reviewed the patient's lab results. Labs: Laboratory Results - last 24 hr 04/08/22 04/08/22 10:30 10:30 WBC 10.9 RBC 4.08 L Hgb 10.2 L Hct 33.6 L MCV 82.4 MCH 25.0 L MCHC 30.4 L RDW Std Deviation 44.6 H RDW Coeff of Shashank 15.0 H Plt Count 451 H MPV 8.5 Immature Gran % (Auto) 3.100 H Neut % (Auto) 80.9 H Lymph % (Auto) 9.4 L Gregg % (Auto) 4.9 Eos % (Auto) 1.2 Baso % (Auto) 0.5 Absolute Neuts (auto) 8.8 H Absolute Lymphs (auto) 1.02 Nucleated RBC % 0 Sodium 144 Potassium 3.0 L Chloride 110 H Carbon Dioxide 24.0 Anion Gap 10 BUN 10 Creatinine 0.73 Estim Creat Clear Calc 102.61 Est GFR (MDRD) Af Amer 126 Est GFR (MDRD) Non-Af 104 BUN/Creatinine Ratio 13.8 Glucose 93 Calcium 9.2 Total Bilirubin 0.70 AST 14 L ALT 20 Alkaline Phosphatase 137 H Total Protein 7.4 Albumin 3.2 Globulin 4.2 Albumin/Globulin Ratio 0.8 L Discharge Plan Triage Chief Complaint: Vag Bleeding ED Provider: James Arzate Dx/Rx/DC Orders Instructions: ED Dysfunctional Uterine Bleeding, ED Hypokalemia, ED Potassium- Rich Foods Prescriptions: New potassium chloride 40 mEq/15 mL liquid 20 meq PO DAILY 1 Days Qty: 7.5 0RF No Action ibuprofen [Children's Ibuprofen] 100 mg/5 mL Suspension 600 mg PO Q6H Qty: 473 0RF Primary Care Provider: Care Physician,No Primary Referrals: Mirta Stiles DO [Med Staff - Active Staff] - Care Physician,No Primary [Primary Care Provider] - Disposition Disposition: Home, Self Care
[2022-04-08 11:11] LABS: ALB/GLOB Ratio 0.8 RATIO (0.9-2.4); AST(SGOT) 14 U/L (15-37); Alanine Aminotransfer ALT/SGPT 20 U/L (13-56); Albumin, Serum 3.2 g/dL (3.2-5.0); Alkaline Phosphatase 137 U/L (45-117); Anion Gap 10 (5-15); BUN 10 mg/dL (7-18); BUN/Creat Ratio 13.8 RATIO (10-20); Calcium,Total 9.2 mg/dL (8.5-10.1); Chloride 110 mmol/L (98-107); Creatinine, Serum 0.73 mg/dL (0.55-1.02); EST Glomerular Filtration Rate 104 mL/min (>60); Est Glom Filt Rate - Afr Amer 126 mL/min (>60); Estimated Creatinine Clearance 102.61 ml/min; Globulin 4.2 g/dL (2.2-4.2); Glucose 93 mg/dL (74-106); Protein, Total 7.4 g/dL (6.4-8.2); Sodium Level 144 mmol/L (136-145)
[2022-04-08 11:13] VITALS: RESP 14
--- NOTE | 2022-04-08 11:46 | ED.RN ---
PT REFUSES PO POTASSIUM AT THIS TIME. PT EDUCATED ON NEED FOR POTASSIUM AND PT STATES SHE STILL DOES NOT WANT IT. DR. MORALES NOTIFIED.
== END 2022-04-08 11:50 | disposition home or self-care (01) ==
PROVIDERS: Emergency Provider Student in an Organized Health Care Education/Training Program; Visit Provider Student in an Organized Health Care Education/Training Program
DX: N93.9 Abnormal uterine and vaginal bleeding, unspecified (principal); E87.6 Hypokalemia
CPT/HCPCS: 80053; 85025; 96360; 99284; J7030; A4216

== ENCOUNTER → 2022-05-19 | Outpatient (CLI) | payer MEDICAID, SELFPAY ==
--- NOTE | 2022-05-19 14:17 | US_ITS ---
STUDY: ULTRASOUND OF THE FEMALE PELVIS - COMPLETE REASON FOR EXAM: Female, 26 years old. AUB LMP: 6.5 weeks post . TECHNIQUE: Transabdominal TECHNICAL QUALITY: Adequate. COMPARISON: None. FINDINGS: The uterus is anteverted and is in a midline position. The uterus measures 8.4 x 7.6 x 4.3 cm. Normal uterine cervix. The endometrium measures 4 mm in thickness, and is . There is no demonstrated endometrial mass. There is no demonstrated myometrial mass. I.U.D. - The patient does not have an I.U.D. is a suggestion of partially visualized scarring within the uterus status post without visualized significant edema. The right ovary is visualized. The right ovary measures 3.6 x 1.9 x 3.4 cm. There is no right ovarian cyst or ovarian mass. There is no visualized right adnexal mass or complex lesion. There is normal arterial and normal venous vascularity. The left ovary is visualized. The left ovary measures 2.0 x 2.3 x 2.3 cm. There is no left ovarian cyst or ovarian mass. There is no visualized left adnexal mass or complex lesion. There is normal arterial and normal venous vascularity. There is no fluid in the cul-de-sac. The pre void volume of the bladder was under 19 mm. Polycystic ovary disease: No. US/Pelvic (Non ) IMPRESSION: No torsion. Normal uterus. Electronically Signed: Luli Joyner MD at 4:58 EDT ,
== END | disposition home or self-care (01) ==
LOC: US 14:14
PROVIDERS: Referring Provider Obstetrics & Gynecology; Visit Provider Obstetrics & Gynecology
DX: N93.9 Abnormal uterine and vaginal bleeding, unspecified (principal)
CPT/HCPCS: 76856

== ENCOUNTER → 2022-11-23 | Outpatient (CLI) | payer MEDICAID, SELFPAY ==
--- NOTE | 2022-11-23 14:30 | BI_ITS ---
MAMMOGRAPHY - BILATERAL DIAGNOSTIC REASON FOR EXAM: Female, 27 years old. BILAT RASH/TENDERNESS AXILLA PERTINENT HISTORY: Non-contributory. TECHNIQUE: Digital examination. Mediolateral oblique (MLO) and craniocaudad (CC) views of both breasts were obtained. CAD: CAD was performed on this study. COMPARISON: None. FINDINGS: Breast Composition: The breasts are extremely dense, which lowers the sensitivity of mammography. There are no dominant masses or suspicious calcifications. No other significant abnormalities are identified. BI/DIAG MAMM W/CAD, BILAT IMPRESSION: Stable bilateral diagnostic mammogram. ASSESSMENT CATEGORY: BIRADS Category 1: Negative. A letter regarding these results will be sent to the patient by the facility within 30 days. FOLLOW UP RECOMMENDATION: Begin screening mammograms at 40 years of age. (N) Approximately 10% of breast cancers are not detected by mammography. A normal mammogram should not delay biopsy of a clinically suspicious abnormality. Electronically Signed: Yoan Azar MD at 15:25 EDT ,
== END | disposition home or self-care (01) ==
LOC: OPBI 14:17
PROVIDERS: Referring Provider Advanced Practice Midwife; Visit Provider Advanced Practice Midwife
DX: N64.4 Mastodynia (principal)
CPT/HCPCS: 77062; 77066; G0279